=== PATIENT | female | born 1940 | race Caucasian/White ===

== ENCOUNTER 2017-02-16 13:06 | Outpatient (CLI) | payer MEDICARE, BC ==
[2017-02-16 18:40] LABS: HCT - HEMATOCRIT 40.2 % (37.0-47.0); MEAN CORPUSCULAR HEMOGLOBIN 33.4 pg (27.0-31.0); MEAN CORPUSCULAR HGB CONC 34.9 g/dL (32.0-36.0); MEAN CORPUSCULAR VOLUME 95.7 fL (81.0-99.0); MEAN PLATELET VOLUME 7.3 fL (7.9-10.8); RED BLOOD COUNT 4.2 10^6/uL (4.20-5.40); WHITE BLOOD COUNT 5.5 x10^3/uL (4.8-10.8)
[2017-02-16 18:59] LABS: THYROID STIMULATING HORMONE 2.25 uIU/mL (0.34-5.60)
== END 2017-02-16 13:07 | disposition home or self-care (01) ==
LOC: LAB.F 13:06
PROVIDERS: ATTEND Specialist
DX: R53.83 Other fatigue (principal)
CPT/HCPCS: 36415; 84439; 84443

== ENCOUNTER 2024-02-13 10:25 | Outpatient (CLI) | payer MEDICARE, BC ==
[2024-02-13 15:05] LABS: CALCIUM 9.8 mg/dL (8.5-10.3); POTASSIUM 4.4 mmol/L (3.5-4.5)
== END 2024-02-13 10:26 | disposition home or self-care (01) ==
LOC: LAB.S 10:25
PROVIDERS: ATTEND Internal Medicine Cardiovascular Disease
DX: I10 Essential (primary) hypertension (principal)
CPT/HCPCS: 36415; 80048